=== PATIENT | female | born 1990 | race Two or more races ===

== ENCOUNTER 2024-05-10 22:06 | Inpatient (IN) | payer OTHER, SELFPAY ==
--- OUTSIDE RECORDS SUMMARY | 2024-05-10 22:56 | XMS_ITS | Patient Health Record ---
Author Name Unknown Organization Located within [facility], [facility] Address [address] [place] [address] Care Team Providers Care Remote Operations Producer Name Role Phone Tomas Castilloa Primary Care Provider Reason For Referral No Information Problems Problem Type SNOMED Code ICD Code Onset Dates Problem Status W/U Status Risk Notes Problem [id number] BMI 30.0-30.9,ad ult (Z68.30) Active confirmed Plan Of Treatment No Information Insurance Providers Payer Name Payer Address Payer Phone Subscriber Number Group Number Insured Name Patient Relationship to Insured Coverage Start Date Coverage End Date Farhan [facility] [address] [place] [address] 6 [id number] Tony Cat Spouse - patient is the spouse of the insured
[2024-05-10 23:01] VITALS: BP 122/70; PULSE 71
[2024-05-10 23:30] VITALS: BP 113/67; PULSE 71
[2024-05-11] VITALS (81 sets, daily range): BP systolic 82–135; BP diastolic 48–104; PULSE 58–100; RESP 16–20; TEMP 36.4–36.7; O2SAT 95–100; BMI 35.6
[2024-05-11 00:14] LABS: Basophils Percent Auto 0.4 % (0.2-1.2); Eosinophils Absolute Auto 0.1 K/mm3 (0-0.3); Eosinophils Percent Auto 0.7 % (0-4.4); Hematocrit 36.5 % (37.0-47.0); Hemoglobin 12.3 g/dL (12.0-15.0); Immature Granulocyte Absolute 0.03 K/mm3 (0.00-0.031); Immature Granulocyte Percent A 0.3 % (0-0.5); Lymphocytes Absolute Auto 2.44 K/mm3 (0.9-3.2); Mean Corpuscular HGB Conc 33.7 g/dl (32-36); Mean Corpuscular Hemoglobin 27.2 pg (26-34); Mean Corpuscular Volume 80.8 fl (80-100); Mean Platelet Volume 12.3 fl (7.4-10.4); Monocytes Absolute Auto 0.8 K/mm3 (0.1-0.6); Monocytes Percent Auto 7.4 % (2.6-8.5); Neutrophils Absolute Auto 7.2 K/mm3 (1.3-6.7); Neutrophils Percent Auto 68.2 % (45.5-73.1); Platelet Count Result 203 k/mm3 (150-375); Red Blood Count 4.52 M/mm3 (4.2-5.4); Red Cell Distribution Width 14.6 % (11.5-14.5); White Blood Count 10.6 K/mm3 (4.5-10.0)
[2024-05-11 00:50] LABS: Rapid Plasma Reagin Non-Reactive (NonReactive)
[2024-05-11 01:04] LABS: HIV 1/2 Ab P24 Ag Result Negative (Negative)
[2024-05-11] MEDS: LACTATED RINGERS 1,000 ML 999 ML IV CONT (02:11)
--- NOTE | 2024-05-11 02:24 | LDADM ---
This patient, Diane Ruiz, was admitted to Labor/Delivery/Recovery 104 on 05/10/24 at 22:06. Plans for labor, pain management and were discussed with patient. Patient/family oriented to hospital policies and general routines including ID bracelet, bed and alarms, visiting hours, pain management, procedures, bathroom and other care routines, personal items, smoking policy, room service/diet and guest tray routines, security routines, and visiting hours. Patient/Family are encouraged to report perceived risks to care and to ask questions if they do not understand what they are told or what they should do. See OBIX for further documentation.
--- NOTE | 2024-05-11 02:53 | P.PNAN_ITS ---
Anes - Eval Pre Procedure Procedure: Labor Epidural Date/Time: 05/11/24 02:53 Surgeon: Bibiana Preop Diagnosis: Labor pain Pre Op Diagnosis: Leaking/Contractions Patient Data Age: 34 Gender: F Height: 1.63 m Weight: 94.1 kg Last Vital Signs Pulse 67 05/11/24 02:30 BP 126/80 05/11/24 02:30 Pulse Ox 100 05/11/24 02:48 Allergies Allergy/AdvReac Type Severity Reaction Status Date / Time No Known Allergies Allergy Verified 05/11/24 02:27 Home Medications Medication Instructions Recorded Confirmed Type famotidine 20 mg tablet 20 mg PO DAILY 04/06/24 05/11/24 History vits no.126-ferrous fum 1 tablet PO DAILY 04/06/24 05/11/24 History 28 mg iron-folic acid 800 mcg tablet (Classic ) Laboratory Tests 05/10/24 23:43 WBC 10.6 H K/mm3 (4.5-10.0) RBC 4.52 M/mm3 (4.2-5.4) Hgb 12.3 g/dL (12.0-15.0) Hct 36.5 L % (37.0-47.0) MCV 80.8 fl (80-100) MCH 27.2 pg (26-34) MCHC 33.7 g/dl (32-36) RDW 14.6 H % (11.5-14.5) Plt Count 203 k/mm3 (150-375) MPV 12.3 H fl (7.4-10.4) Immature Gran % (Auto) 0.3 % (0-0.5) Neut % (Auto) 68.2 % (45.5-73.1) Lymph % (Auto) 23.0 % (18.3-44.2) [place] % (Auto) 7.4 % (2.6-8.5) Eos % (Auto) 0.7 % (0-4.4) Baso % (Auto) 0.4 % (0.2-1.2) Lymph # (Auto) 2.44 K/mm3 (0.9-3.2) [place] # (Auto) 0.8 H K/mm3 (0.1-0.6) Eos # (Auto) 0.1 K/mm3 (0-0.3) Baso # (Auto) 0.0 K/mm3 (0.0-0.1) Abs Immat Gran (auto) 0.03 K/mm3 (0.00-0.031) Absolute Neuts (auto) 7.2 H K/mm3 (1.3-6.7) Absolute Nucleated RBC 0.000 K/mm3 (0.0-0.012) Nucleated RBC % 0.0 % (0.0-0.2) RPR Non-reactive (NonReactive) HIV 1&2 Ab/P24 Ag 4thGn Negative (Negative) Blood Type A Positive Antibody Screen Negative : gestational age (ALIYAH 05/07/24, ) Patient hx anesthesia problems: none Family hx anesthesia problems: none Results Review: All pre-operative results and documents have been reviewed as part of the pre- operative evaluation. [facility] Family History Family History Father Diabetes mellitus Congestive heart failure Mother Fibroids Social History Social History Substance use: never Spiritual care concerns: No Exam Day of Procedure 05/11/24 02:53 Patient weight: normal Heart: regular rate and rhythm Lungs: normal air movement Airway: Mallampati scale class II Neurological: alert and oriented
--- NOTE | 2024-05-11 04:20 | PM.OBPRVD ---
OB - Vaginal Delivery Note Procedure Delivery date: 05/11/24 Induction method: None Delivery monitor: External FHT and External Uterine Route of delivery: Episiotomy description: None Laceration Description: Perineal - 1st Degree Delivery repair: vicryl Specimen: No Quantitative Blood Loss (ml): 61 Anesthesia type: Epidural Disposition: Floor Complications: No immediate complications Narrative: Admitted at 40 and 3 7th weeks gestation in active labor. She had epidural anesthesia placed. She spontaneously ruptured. Her hospital course was unremarkable she underwent spontaneous vaginal delivery in the SHAWN position. Anterior posterior shoulder delivered spontaneously. Cord clamped and remembers about a 1minute 9 [id number]. Cord blood was drawn. Placenta delivered spontaneously. Twenty of Pitocin placed in the IV to help firm the uterus. After speculum all sidewalls for stool greasy midline laceration was noted it was closed with failure rate of 0 Vicryl. Baby Date of : 05/11/24 Time of : 04:08 Gestational Age by Date: 40 Infant gender: Female presentation: vertex position: Right Occiput Anterior Placenta delivery description: Spontaneous Cord Vessel Description: 3 Vessels score one minute: 9 score five minutes: 9
--- NOTE | 2024-05-11 04:23 | PM.IMHP ---
H&P: HPI History of Present Illness Date/Time: 05/11/24 04:23 Chief Complaint: Term in active labor Narrative: for Gram 3 para 243seconds weeks gestation active labor has complicated she is 40 and 3 7th weeks gestation PMFSH Family History Family History Father Diabetes mellitus Congestive heart failure Mother Fibroids Social History Social History Smoking status: Former smoker Substance use: never Do You Feel Safe in your Home?: Yes Lack of Transportation: No Lack of Food: Never True Current Housing: I Have Housing Concerned About Future Housing: No Difficulty Paying Gas/Electric Bills: No Difficulty Paying for Meds: No Currently Unemployed: No Education: Bachelor's Degree Difficulty w/ Childcare or Family Care: No Spiritual care concerns: No Meds Home Medications and Allergies Home Medications Medication Instructions Recorded Confirmed Type famotidine 20 mg tablet 20 mg PO DAILY 04/06/24 05/11/24 History vits no.126-ferrous fum 1 tablet PO DAILY 04/06/24 05/11/24 History 28 mg iron-folic acid 800 mcg tablet (Classic ) Allergies Allergy/AdvReac Type Severity Reaction Status Date / Time No Known Allergies Allergy Verified 05/11/24 02:27 Vital Signs Vital Signs - 24 hr 05/10/24 23:01 05/10/24 23:30 05/11/24 01:01 Pulse Rate 71 71 71 Blood Pressure 122/70 113/67 104/56 L Pulse Oximetry Oxygen Delivery 05/11/24 01:51 05/11/24 01:56 05/11/24 02:01 Pulse Rate Blood Pressure Pulse Oximetry 99 98 100 Oxygen Delivery 05/11/24 02:06 05/11/24 02:11 05/11/24 02:17 Pulse Rate Blood Pressure Pulse Oximetry 99 100 95 Oxygen Delivery 05/11/24 02:18 05/11/24 02:22 05/11/24 02:27 Pulse Rate 79 Blood Pressure 128/92 H Pulse Oximetry 98 98 Oxygen Delivery 05/11/24 02:30 05/11/24 02:32 05/11/24 02:37 Pulse Rate 67 Blood Pressure 126/80 Pulse Oximetry 98 99 Oxygen Delivery 05/11/24 02:42 05/11/24 02:43 05/11/24 02:43 Pulse Rate Blood Pressure Pulse Oximetry 98 99 100 Oxygen Delivery 05/11/24 02:48 05/11/24 02:53 05/11/24 02:56 Pulse Rate 87 Blood Pressure 132/104 H Pulse Oximetry 100 100 Oxygen Delivery 05/11/24 02:58 05/11/24 02:59 05/11/24 03:00 Pulse Rate 88 84 77 Blood Pressure 126/70 125/86 132/94 H Pulse Oximetry 100 Oxygen Delivery 05/11/24 03:03 05/11/24 03:05 05/11/24 03:10 Pulse Rate 86 76 79 Blood Pressure 125/75 123/77 135/78 Pulse Oximetry 99 99 100 Oxygen Delivery 05/11/24 03:11 05/11/24 03:13 05/11/24 03:14 Pulse Rate 74 82 82 Blood Pressure 123/73 124/71 122/74 Pulse Oximetry Oxygen Delivery 05/11/24 03:15 05/11/24 03:20 05/11/24 03:25 Pulse Rate 82 89 Blood Pressure 119/64 110/62 Pulse Oximetry 100 99 Oxygen Delivery 05/11/24 03:26 05/11/24 03:30 05/11/24 03:31 Pulse Rate 78 Blood Pressure 102/58 L Pulse Oximetry 99 99 Oxygen Delivery 05/11/24 03:35 05/11/24 03:36 05/11/24 03:40 Pulse Rate 83 79 Blood Pressure 115/69 120/70 Pulse Oximetry 98 Oxygen Delivery 05/11/24 03:41 05/11/24 03:46 05/11/24 03:48 Pulse Rate 74 Blood Pressure 96/56 L Pulse Oximetry 99 100 99 Oxygen Delivery 05/11/24 03:53 05/11/24 03:58 05/11/24 04:00 Pulse Rate 83 Blood Pressure 111/73 Pulse Oximetry 99 97 Oxygen Delivery 05/11/24 04:03 05/11/24 04:13 05/11/24 04:15 Pulse Rate 78 Blood Pressure 120/78 Pulse Oximetry 100 99 Oxygen Delivery 05/11/24 04:18 05/11/24 03:13 Pulse Rate Blood Pressure Pulse Oximetry 100 Oxygen Delivery Room Air Exam Const: General: cooperative, healthy appearing and comfortable Nutritional Appearance: average body habitus Orientation/consciousness: oriented
--- NOTE | 2024-05-11 04:26 | PM.DS ---
DS: Admitting Diagnosis Discharge Date 05/12/2024 Admitting Diagnosis term DS: Discharge Diagnosis Discharge Diagnosis (1) Term : Code(s): Z34.90 - Encounter for supervision of normal , unspecified, unspecified trimester Status: Acute DS: Summary Hospital Course Reason for hospitalization: patient was admitted at term in active labor. She underwent spontaneous delivery early a 05/11/2024. Hospital Course: Hospital course was unremarkable. She remained afebrile. She was up, voiding without difficulty, eating regular diet, ambulating, and generally without complaints. Time Spent with Patient Time attestation: Total time spent providing and/or coordinating discharge services: Exam Const: General: cooperative, healthy appearing and comfortable Nutritional Appearance: average body habitus Orientation/consciousness: oriented to person, oriented to place and oriented to time Resp: Effort & Inspection: normal respiratory effort Cardio: Rate: regular rate Rhythm: regular rhythm Heart sounds: S1 normal heart sound present and S2 normal heart sound present GI: Inspection: normal to inspection DS: Data Data Completed and Pending Labs on day of discharge: Labs from last 24 hours 05/10/24 23:43 WBC 10.6 H RBC 4.52 Hgb 12.3 Hct 36.5 L MCV 80.8 MCH 27.2 MCHC 33.7 RDW 14.6 H Plt Count 203 MPV 12.3 H Immature Gran % (Auto) 0.3 Neut % (Auto) 68.2 Lymph % (Auto) 23.0 [place] % (Auto) 7.4 Eos % (Auto) 0.7 Baso % (Auto) 0.4 Lymph # (Auto) 2.44 [place] # (Auto) 0.8 H Eos # (Auto) 0.1 Baso # (Auto) 0.0 Abs Immat Gran (auto) 0.03 Absolute Neuts (auto) 7.2 H Absolute Nucleated RBC 0.000 Nucleated RBC % 0.0 RPR Non-reactive HIV 1&2 Ab/P24 Ag 4thGn Negative Blood Type A Positive Antibody Screen Negative Discharge Plan Discharge Attending physician on discharge: Jeffery Lindsay Discharging Clinician: Jeffery Lindsay Patient Disposition: Home, Self-Care Activity: may shower, no straining and pelvic rest Diet: heart healthy Wound Care Instructions: follow printed instructions Patient Instructions: Antibiotic Form Stand Alone Forms: General Discharge Information Follow-up/Referrals: Jeffery Lindsay MD [Physician] - Discharge Medications: Continued famotidine 20 mg Tablet 20 mg PO DAILY Classic 28 mg iron- 800 mcg Tablet 1 tablet PO DAILY Date of admission: 05/10/24 22:06 Primary Care Provider: UNKNOWN,DOCTOR Admitting Provider: Jeffery Lindsay Attending physician on admission: Jeffery Lindsay Condition: Stable
[2024-05-11] MEDS: OXYTOCIN 30 UNITS/NS 500 ML 30 UNITS/500 ML BAG 125 UNITS IV CONT (04:44)
[2024-05-11] MEDS: WITCH HAZEL 40 PADS 1 PAD (07:06)
[2024-05-11] MEDS: BENZOCAINE 20% AER SPR (*SP) 56 GM CAN 1 SPRAY (07:07)
--- NOTE | 2024-05-11 07:13 | PC.NURSE ---
Patient transferred to post room #285 via wheelchair. Support person present. Oriented to unit, room, information board, rooming in, admission packet and security measures. Patient verbalizes understanding.
--- NOTE | 2024-05-11 09:05 | PC.NURSE ---
Introductions were made, then consulted with patient to assess needs related to . Mother led the conversation with her?plans to feed?her infant and the?experience so far. She did breastfeed her other children for a short time, but says latching at home was difficult and her spouse wasn't very supportive of . Encouraged understanding of how to watch for early feeding cues, responsive feeding, feeding on demand (aiming for 8-12 times in 24 hours, about every 2-3 hours), milk production, duration of feeding, signs of adequate intake/output and how to record on the feeding sheet. Mother works well with her infant with encouragement and education. Reviewed positioning and ear, shoulder, hip alignment, supporting the breast to facilitate a deep latch, asymmetrical latch (off-center), leading with the chin with a big, open, wide gape and body close to mother. Infant latched optimally to the right breast in [cradle] position. Infant was [able] to maintain latch without pain to mother. Mother voiced understanding of responsive feedings, to call if infant does not latch, or if there is discomfort with . Resources used for education were facilitated with the feeding sheet, name written on the communication board, and the mom/baby guide. Parents voiced understanding of information, demonstrated learning and will call if there is a request for assistance. Reported to the Primary RN.
--- NOTE | 2024-05-11 11:30 | PC.NURSE ---
Called to patient room for assistance. We latched baby on the right breast in cradle hold. Baby sucks a few times and stops, but starts again with stimulation. Mother struggles with latching to the right the most so we discussed trying baby in the football hold on the right at the next feeding time to see if that helps. Encouraged mom to keep baby at the breast as long as she is sucking and to count any minutes that baby nurses for toward her total feeding time. Is Baby Getting Enough Milk handout given and reassured dad we will be monitoring baby to ensure she is getting all the nutrients she needs. Parents verbalized their understanding of the information shared. Reported to Primary RN.
[2024-05-11] MEDS: DOCUSATE SODIUM 100 MG CAPSULE PO (14:45)
[2024-05-11] MEDS: IBUPROFEN 600 MG TABLET PO ×2 (14:45→22:45)
--- NOTE | 2024-05-11 16:00 | PC.NURSE ---
1450: Called to room for assistance. was attempting to latch to the left side but wasn't giving much effort. We switched to football position so mom could try it, and baby would latch and give one or two sucks, but wouldn't maintain the latch. Mom felt that baby wasn't really ready to eat so we decided to take a break and try again in a half hour. 1600: Mother fed baby in football on the right side. Mom said she latched better and was not as consistent as with the left breast, but with stimulation she nursed for 8 minutes. Mom was trying in cradle on the left breast when I entered, and we did latch baby again and she sucked well for a few more minutes. We talked about expected duration of feedings now, versus when her milk comes in. Advised mom to nap if she can this evening because babies often are more awake and eager to eat at night. Mom said she remembered this with her other baby's. Mom will continue to try football on the right breast since baby did better with that position. Mom will call for assistance as needed. Reported to primary RN.
[2024-05-11] MEDS: ACETAMINOPHEN 325 MG TABLET 650 MG PO (19:00)
[2024-05-12] MEDS: ACETAMINOPHEN 325 MG TABLET 650 MG PO ×2 (01:30→07:44)
[2024-05-12] MEDS: IBUPROFEN 600 MG TABLET PO ×2 (04:15→10:31)
[2024-05-12 04:49] LABS: Hematocrit 36.2 % (37.0-47.0)
--- NOTE | 2024-05-12 05:18 | PM.OBPNVD ---
OB - PN: Subj Subjective Date/time seen: 05/12/24 05:18 Patient comments: no complaints and pain well controlled baby status: doing well and nursing well OB - PN: Obj Data Labs 05/12/24 03:42 Labs: Laboratory Results - last 24 hr 05/12/24 03:42 Hgb 12.0 Hct 36.2 L OB - PN A/P Plan day: 1 Plan: routine care, discharge home and follow up 6 weeks Time Spent With Patient Time: Total time spent is greater than 50% in coordination of care (as documented) at patient's floor/unit and/or counseling patient: Time with patient: less than 15 minutes Exam Const: General: cooperative, healthy appearing and comfortable Nutritional Appearance: average body habitus Orientation/consciousness: oriented to person, oriented to place and oriented to time HENMT: Head: normal to inspection Resp: Effort & Inspection: normal respiratory effort Cardio: Rate: regular rate Rhythm: regular rhythm Heart sounds: S1 normal heart sound present and S2 normal heart sound present GI: Inspection: normal to inspection
[2024-05-12] MEDS: DOCUSATE SODIUM 100 MG CAPSULE PO (07:44)
[2024-05-12 07:50] VITALS: BP 114/74; PULSE 74; RESP 16; TEMP 36.4; O2SAT 100
[2024-05-13 11:23] VITALS: BP 127/84; PULSE 66; RESP 18; TEMP 36.8; O2SAT 100
== END 2024-05-12 10:50 | disposition home or self-care (01) | DRG 560 ==
LOC: ANHLDR 05-11 04:28 → ANHOB2 05-11 07:19
PROVIDERS: Admitting Provider Obstetrics & Gynecology; Visit Provider Obstetrics & Gynecology
DX: O62.3 Precipitate labor (principal); O70.0 First degree perineal laceration during delivery; Z3A.40 40 weeks gestation of pregnancy; Z37.0 Single live birth; Z87.891 Personal history of nicotine dependence
CPT/HCPCS: 36415; 84112; 85014; 85018; 85025; 86592; 86703; 86850; 86900; 86901; A9270; G0432; J2590; J2795; J7120